=== PATIENT | male | born 1965 | race Hispanic/Latino ===

== ENCOUNTER 2022-02-25 15:51 | Emergency (ER) | payer OTHER ==
[~2022-02-25] VITALS: Ht 175.3 cm; Wt 112.1 kg
[2022-02-25] MEDS ORDERED: LEVOFLOXACIN500 MG (16:07)
[2022-02-25] MEDS ORDERED: DIPHENHYDRAMINE HCL 25 MG CAP PO ONE (16:15)
[2022-02-25] MEDS ORDERED: DEXAMETHASONE SOD PHOS 10 MG/1 ML VIAL IM ONE (16:15)
[2022-02-25] MEDS ORDERED: PREDNISONE20 MG PO (16:19)
[2022-02-25] MEDS ORDERED: DIPHENHYDRAMINE25 M1 PO (16:19)
[2022-02-25] MEDS ORDERED: DIPHENHYDRAMINE HCL 25 MG CAP ONE (16:28)
[2022-02-25] MEDS ORDERED: DEXAMETHASONE SOD PHOS INJ 4 MG/ML SDV ONE (16:28)
== END 2022-02-25 16:24 | disposition home or self-care (01) ==
LOC: FSED 16:18
DX: L50.9 Urticaria, unspecified (principal); T63.431A Toxic effect of venom of caterpillars, accidental (unintentional), initial encounter; Y92.89 Other specified places as the place of occurrence of the external cause; F17.210 Nicotine dependence, cigarettes, uncomplicated
CPT/HCPCS: 96372; 99283; J1100 ×2